=== PATIENT | female | born 1945 | race Caucasian/White ===

== ENCOUNTER 2016-07-05 11:01 | Inpatient (IN) | payer OTHER ==
[~2016-07-05] VITALS: Ht 165.1 cm; Wt 94.3 kg
[~2016-07-05 11:01] MED LIST: AMLODIPINE BESY10 MG PO; BENAZEPRIL HCL40 MG PO; HYDROCHLOROTHIA25 MG PO; POLYETHYLENE GL17 GM PO; PRAVASTATIN SOD20 MG PO; SENNA-TIME S T1 EACH PO; ST. JOSEPH ASPI81 MG PO
[2016-07-05 11:48] LABS: HEMATOCRIT 50.6 % (36.0-46.0); MCH 30.4 PG (29.0-34.0); MCHC 34.4 G/DL (30.0-36.0); MCV 88.3 FL (83-99); MEAN PLAT.VOLUME 8.6 uM^3 (9.5-12.4); PLATELET COUNT 429 K/uL (156-360); RBC DIS.WIDTH-CV 12.4 % (11.8-14.6); RBC DIS.WIDTH-SD 39.5 % (39-53); RED BLOOD COUNT 5.73 M/uL (3.80-5.20); WHITE BLOOD COUNT 19.7 K/uL (4.1-10.2)
[2016-07-05 11:58] LABS: CHLORIDE 93 mEq/L (99-109); POTASSIUM 4.7 mEq/L (3.7-5.4); SODIUM 128 mEq/L (136-147)
[2016-07-05 12:01] LABS: ANION GAP 12 MEQ/L (2-14); GLUCOSE 235 mg/dL (70-99)
[2016-07-05 12:02] LABS: TOTAL BILIRUBIN 1.2 mg/dL (0.0-1.0)
[2016-07-05 12:03] LABS: ALKALINE PHOSPHATASE 158 IU/L (3-129)
[2016-07-05 12:04] LABS: GFR ESTIMATE (CALCULATED) 52 mL/min/
[2016-07-05 12:05] LABS: UREA NITROGEN (BUN) 17 mg/dL (9-23)
[2016-07-05 12:35] LABS: LIPASE 64 U/L (1.0-51.0)
[2016-07-05 14:58] LABS: TROP-I INTERPRETATION NEGATIVE; TROPONIN-I < 0.01 ng/mL (0.0-0.30)
[2016-07-05] MEDS ORDERED: SENEXON-S TABL1 EACH PO (14:58)
[2016-07-05] MEDS ORDERED: PRILOSEC10 MG PO (15:00)
[2016-07-05 17:58] VITALS: BP 108/59
[2016-07-05 18:55] LABS: ADD MIUA? YES; BILIRUBIN NEGATIVE; BLOOD TRACE; COLOR YELLOW ((YELLOW)); EPITHELIAL CELLS 1+; GLUCOSE (STRIP) NEGATIVE; KETONES NEGATIVE; LEUKOCYTES NEGATIVE; NITRITE NEGATIVE; PROTEIN (STRIP) 30; RED BLOOD CELLS 0-5 /HPF (0-5); SPECIFIC GRAVITY 1.005 (1.000-1.030); UROBILINOGEN 0.2 MG/DL (0.2-1.0); WHITE BLOOD CELLS 0-5 /HPF (0-5)
[2016-07-05 18:56] LABS: BACTERIA 2+; CASTS NONE SEEN /LPF; CRYSTALS NONE SEEN; MUCUS NONE SEEN; UCUL ADDED? NO
[2016-07-05 20:00] VITALS: BP 145/82
[2016-07-06] VITALS (8 sets, daily range): BP systolic 115–142; BP diastolic 55–75
[2016-07-06 06:34] LABS: HEMATOCRIT 41.3 % (36.0-46.0); MCH 31.3 PG (29.0-34.0); MCHC 34.9 G/DL (30.0-36.0); MCV 89.8 FL (83-99); MEAN PLAT.VOLUME 9.5 uM^3 (9.5-12.4); PLATELET COUNT 353 K/uL (156-360); RBC DIS.WIDTH-CV 12.5 % (11.8-14.6); RBC DIS.WIDTH-SD 40.1 % (39-53)
[2016-07-06 06:35] LABS: WHITE BLOOD COUNT 8.6 K/uL (4.1-10.2)
[2016-07-06 06:46] LABS: TROP-I INTERPRETATION NEGATIVE; TROPONIN-I < 0.01 ng/mL (0.0-0.30)
[2016-07-06 06:57] LABS: ALKALINE PHOSPHATASE 136 IU/L (3-129); ANION GAP 11 MEQ/L (2-14); CHLORIDE 94 MEQ/L (99-109); GFR ESTIMATE (CALCULATED) > 59 mL/min/; GLUCOSE 142 mg/dL (70-99); LIPASE 25 U/L (1.0-51.0); POTASSIUM 3.9 MEQ/L (3.7-5.4); SAMPLE HEMOLYSIS CHECK 0; SAMPLE ICTERIC CHECK 0; SAMPLE LIPEMIA CHECK 0; SODIUM 128 MEQ/L (136-147); TOTAL BILIRUBIN 0.6 MG/DL (0.0-1.0); UREA NITROGEN (BUN) 18 mg/dL (9-23)
[2016-07-06 07:11] LABS: Estimated Average Glucose 131 mg/dL (70-123); HEMOGLOBIN A1c (GLYCOHEMOGLOB) 6.2 % HGB (Below 5.7)
[2016-07-07 04:17] VITALS: BP 123/60
[2016-07-07 08:09] LABS: HEMATOCRIT 39.2 % (36.0-46.0); MCH 30.8 PG (29.0-34.0); MCHC 33.7 G/DL (30.0-36.0); MCV 91.6 FL (83-99); MEAN PLAT.VOLUME 9.4 uM^3 (9.5-12.4); PLATELET COUNT 344 K/uL (156-360); RBC DIS.WIDTH-CV 13.1 % (11.8-14.6); RBC DIS.WIDTH-SD 43.6 % (39-53); RED BLOOD COUNT 4.28 M/uL (3.80-5.20)
[2016-07-07 08:10] LABS: WHITE BLOOD COUNT 14.5 K/uL (4.1-10.2)
[2016-07-07 08:13] VITALS: BP 168/78
[2016-07-07 08:19] LABS: ALKALINE PHOSPHATASE 106 IU/L (3-129); ALKALINE PHOSPHATASE 107 IU/L (3-129); ANION GAP 9 MEQ/L (2-14); CHLORIDE 101 MEQ/L (99-109); DIRECT BILIRUBIN 0.1 mg/dL (0.0-0.3); GFR ESTIMATE (CALCULATED) > 59 mL/min/; GLUCOSE 131 mg/dL (70-99); POTASSIUM 3.7 MEQ/L (3.7-5.4); SAMPLE HEMOLYSIS CHECK 0; SAMPLE ICTERIC CHECK 0; SAMPLE LIPEMIA CHECK 0; UREA NITROGEN (BUN) 14 mg/dL (9-23)
[2016-07-07 08:26] LABS: SODIUM 136 MEQ/L (136-147); TOTAL BILIRUBIN 0.3 MG/DL (0.0-1.0)
[2016-07-07 08:29] LABS: TOTAL BILIRUBIN 0.3 MG/DL (0.0-1.0)
[2016-07-07 14:57] VITALS: BP 144/64
[2016-07-07 15:26] LABS: FERRITIN 758 NG/ML (10-291)
[2016-07-07] MEDS ORDERED: BENADRYL50 MG PO (17:10)
[2016-07-07] MEDS ORDERED: FAMOTIDINE20 MG PO (17:13)
[2016-07-07] MEDS ORDERED: PREDNISONE20 MG PO (17:19)
[2016-07-07 18:38] LABS: INTERNAL CONTROL VALID? YES; MONOSPOT (MONONUCLEOSIS SEROL) NEGATIVE
[2016-07-09 08:12] LABS: ANTI-NUCLEAR AB SCRN/RFLX(ANA) NONREACTIVE (NONREACTIVE)
[2016-07-10 18:03] LABS: ALPHA-1-ANTITRYPSIN+ 142 mg/dL (83-199)
[2016-07-10 23:26] LABS: ANTI-SMOOTH MUSCLE (Actin)+ 54 U (<20)
[2016-07-13 19:40] LABS: MITOCHONDRIAL (M2) ANTIBODIES+ <=20.0 U (<=20.0)
[2016-07-17] MEDS ORDERED: PRAVACHOL20 MG PO (10:08)
[2016-07-17] MEDS ORDERED: PRILOSEC20 MG PO (10:11)
== END 2016-07-07 18:40 | disposition home or self-care (01) | DRG 916 ==
LOC: EME 11:01 → EDOF 15:49 → 5EAST 16:45
PROVIDERS: Internal Medicine; Internal Medicine Gastroenterology
DX: T78.3XXA Angioneurotic edema, initial encounter (principal); E87.1 Hypo-osmolality and hyponatremia; I10 Essential (primary) hypertension; K80.50 Calculus of bile duct without cholangitis or cholecystitis without obstruction; K76.0 Fatty (change of) liver, not elsewhere classified; E66.9 Obesity, unspecified; E78.5 Hyperlipidemia, unspecified; F10.20 Alcohol dependence, uncomplicated; F17.200 Nicotine dependence, unspecified, uncomplicated; T46.5X5A Adverse effect of other antihypertensive drugs, initial encounter; Z68.34 Body mass index [BMI] 34.0-34.9, adult
CPT/HCPCS: 74177; 74183; 80053; 80076; 81003; 82103 90; 82390; 82728; 83036; 83516 90; 83690; 83735; 84443; 84484; 85027; 86038; 86256 90; 86308; 93005; 99281; 99285; J1200; J1644; J2930; J7030; J7512; S0028

== ENCOUNTER → 2016-07-19 | Outpatient (CLI) | payer OTHER ==
[~2016-07-19] MED LIST changes: +BENADRYL50 MG PO; +FAMOTIDINE20 MG PO; +PRAVACHOL20 MG PO; +PREDNISONE20 MG PO; +PRILOSEC10 MG PO; +PRILOSEC20 MG PO; +SENEXON-S TABL1 EACH PO
== END | disposition home or self-care (01) ==
LOC: AMB 08:44
DX: R10.11 Right upper quadrant pain (principal); K80.50 Calculus of bile duct without cholangitis or cholecystitis without obstruction; E78.5 Hyperlipidemia, unspecified; I10 Essential (primary) hypertension; F17.200 Nicotine dependence, unspecified, uncomplicated
CPT/HCPCS: 74330; 87081; B4087; C1757; C1769; J0330; J1200; J2250; J2405; J2710; J2930; J3010